=== PATIENT | male | born 1970 | race Caucasian/White ===

== ENCOUNTER → 2017-05-07 | Outpatient (CLI) | payer OTHER ==
[~2017-05-07] MED LIST: CATHETER FLUSH 10 ML SYR IV PRN; REGADENOSON 0.4 MG/5 ML SYR (LEXISCAN) IV ONE
[2017-05-07 12:55] VITALS: BP 145/87
--- NOTE | 2017-05-07 15:55 | Diagnostic Imaging Report ---
PROCEDURE: US Abdomen, limited. TECHNIQUE: Multiple realtime grayscale images were obtained over the abdomen in various projections. INDICATION: Left groin lump. FINDINGS: There is an oval well defined mass with no internal color-flow demonstrated seen in the left inguinal canal corresponding to the lump region. It measures 4.1 x 2.9 x 4.6 cm. The scrotum is evaluated and both testicles are seen. IMPRESSION: Indeterminate hypoechoic mass measuring 4.6 cm in the left inguinal region with well defined borders. Etiology is indeterminate. Further evaluation with the CT scan or MRI of the pelvis without and with intravenous contrast is recommended. Dictated by: Dictated on workstation # [id number]
--- NOTE | 2017-05-08 14:43 | STRESS TEST ---
DATE OF SERVICE: 05/07/2017 RESTING AND POST REGADENOSON TECHNETIUM-99M TETROFOSMIN SPECT CT IMAGING ORDERING PHYSICIAN: Dr. Hampton. PRIMARY PHYSICIAN: Dr. Hampton. CLINICAL DIAGNOSIS: Chest discomfort. Baseline images were carried out after injection of 10.39 mCi of technetium-99m tetrofosmin. This was followed by 0.4 mg regadenoson and 10.39 mCi of technetium-99m tetrofosmin for stress imaging. The electrocardiogram showed sinus rhythm. A ventricular couplet was noted during the study. There was no ventricular tachycardia. No other significant ventricular arrhythmia was seen. The electrocardiogram did not change significantly with the regadenoson infusion. Only subtle, nonspecific T-wave abnormality is seen. Review of images at rest and following stress does not indicate any significant perfusion defects consistent with myocardial ischemia or infarction. Gated images show normal global left ventricular systolic function with normal regional wall motion. Left ventricular ejection fraction is calculated to be 60%. Left ventricular end-diastolic volume is 90 mL. TID is absent (1.1). CONCLUSIONS: 1. No evidence of significant myocardial ischemia or infarction on this study. 2. Normal regional wall motion. 3. Normal global left ventricular systolic function with a calculated ejection fraction of 60%. Job ID: [id number] DocumentID: [id number] Dictated Date: 05/08/2017 12:47:35 Base Filler Operator Date: 05/08/2017 13:54:13 Dictated By: LENY PISANO MD, MA, FACP, FACC,
== END ==
LOC: RAD 10:01
PROVIDERS: ATTEND Family Medicine
DX: K40.90 Unilateral inguinal hernia, without obstruction or gangrene, not specified as recurrent (principal); R07.89 Other chest pain
CPT/HCPCS: 76705; 78452; 93017

== ENCOUNTER → 2017-06-05 | Outpatient (CLI) | payer OTHER ==
[~2017-06-05] MED LIST changes: +IOHEXOL 350 MG/ML 100 ML (OMNIPAQUE 350) VIAL IV ONE; +NS 100 ML (IVPB) BAG IV ONE; -REGADENOSON 0.4 MG/5 ML SYR (LEXISCAN) IV ONE
--- NOTE | 2017-06-05 15:10 | Diagnostic Imaging Report ---
PROCEDURE: CT abdomen and pelvis with and without contrast. TECHNIQUE: Precontrast acquisitions were acquired through the abdomen and pelvis. Multiple contiguous axial images were obtained through the abdomen and pelvis after the administration of intravenous contrast. INDICATION: Inguinal region mass. COMPARISON: 05/07/2017. FINDINGS: Included views of the lung bases are clear. CT abdomen: The liver, spleen, pancreas, adrenal glands, and kidneys have a normal appearance. Small bowel loops are nondistended. Normal appendix is identified. There is no loculated fluid collection, free fluid, nor free air within the abdomen. No abnormal mesenteric or retroperitoneal adenopathy is seen. Bony structures show no acute abnormalities. There is mild calcified and noncalcified aortic and arterial atherosclerosis. CT pelvis: Urinary bladder is grossly unremarkable. There is no loculated fluid collection, free fluid, nor free air within the pelvis. No abnormal lymph nodes are seen. Bony structures show no acute abnormalities. There is cutaneous-based lesion within the anterior margins of the left pelvis. It measures approximately 5 x 3.7 cm. There is no evidence of internal enhancement. Lesion is not associated with the left inguinal canal. IMPRESSION: 1. Cutaneous-based lesion anteriorly within the left pelvis, which corresponds to nonvascular lesion described on previously performed sonogram. Exact etiology remains indeterminate, but this is not associated with the left inguinal canal. This could be on the basis of a large complex sebaceous cyst. Surgical excision is recommended. Dictated by: Dictated on workstation # [id number]
== END ==
LOC: RAD 13:36
PROVIDERS: ATTEND Family Medicine
DX: R22.2 Localized swelling, mass and lump, trunk (principal)
CPT/HCPCS: 74178

== ENCOUNTER 2017-06-26 11:40 | Outpatient (CLI) | payer OTHER ==
[~2017-06-26] VITALS: Ht 170.2 cm; Wt 92.5 kg
[2017-06-26] MEDS ORDERED: OMEP20CA12 PO (16:26)
[2017-06-26] MEDS ORDERED: BUSP15TA60 PO (16:26)
[2017-06-26] MEDS ORDERED: LOVA20TA2 PO (16:26)
[2017-06-26] MEDS ORDERED: LISI10TA2 PO (16:26)
[2017-06-26] MEDS ORDERED: BUDE10.2 IH (16:26)
[2017-06-26] MEDS ORDERED: METO-272 PO (16:26)
[2017-06-27] MEDS ORDERED: DOCU-143 PO (10:21)
[2017-06-27] MEDS ORDERED: HYDR-3812 PO (10:21)
== END 2017-06-26 16:28 ==
LOC: PREOP 11:40
PROVIDERS: ATTEND Surgery
DX: Z01.818 Encounter for other preprocedural examination (principal); R19.04 Left lower quadrant abdominal swelling, mass and lump

== ENCOUNTER 2017-06-27 08:12 | Day surgery (SDC) | payer OTHER ==
[~2017-06-27] VITALS: Ht 170.2 cm; Wt 92.5 kg
[~2017-06-27 08:12] MED LIST changes: +BUDE10.2 IH; +BUSP15TA60 PO; -CATHETER FLUSH 10 ML SYR IV PRN; -IOHEXOL 350 MG/ML 100 ML (OMNIPAQUE 350) VIAL IV ONE; +LISI10TA2 PO; +LOVA20TA2 PO; +METO-272 PO; -NS 100 ML (IVPB) BAG IV ONE; +OMEP20CA12 PO
[2017-06-27] MEDS ORDERED: CATHETER FLUSH 10 ML SYR IV PRN (08:30)
[2017-06-27] MEDS ORDERED: CLINDAMYCIN 600 MG/NS 50 ML IVPB IV ONE ×2 (08:30)
[2017-06-27] MEDS: LACTATED RINGERS 1,000 ML IV PRN ×2 (08:39→09:50)
[2017-06-27 08:43] VITALS: BP 154/96
[2017-06-27] MEDS ORDERED: FAMOTIDINE 20MG/2ML IV (PEPCID) IV ONE (08:45)
[2017-06-27] MEDS ORDERED: BUPIVACAINE 0.5% 30 ML (SENSORCAINE) VIAL ONE (08:56)
[2017-06-27] MEDS ORDERED: LIDOCAINE 1% INJ 20 ML (XYLOCAINE) VIAL ONE (08:56)
--- NOTE | 2017-06-27 09:06 | Progress Note-Pre Operative ---
Pre-Operative Progress Note H&P Reviewed The H&P was reviewed, patient examined and no changes noted. Date Seen by Provider: Jun 27, 2017 Time Seen by Provider: 09:05 Date H&P Reviewed: Jun 27, 2017 Time H&P Reviewed: 09:05 Pre-Operative Diagnosis: left inguinal mass VINNIE TEE DO Jun 27, 2017 09:06
--- NOTE | 2017-06-27 10:00 | Progress Note-Post Operative ---
Post-Operative Progess Note Surgeon (s)/Staff Trainer (s) Surgeon VINNIE TEE DO Staff Trainer: Tirso Nwagwu Pre-Operative Diagnosis left inguinal mass Post-Operative Diagnosis left inguinal cyst Procedure & Operative Findings Date of Procedure 06/27/17 Procedure Performed/Findings excision of left inguinal cyst 5.2 cm diameter and excision of skin for closure Anesthesia Type general Estimated Blood Loss Estimated blood loss (mL): min Specimens/Packing Specimens Removed cyst VINNIE TEE DO Jun 27, 2017 10:00 am
[2017-06-27] MEDS ORDERED: DOCU-143 PO (10:21)
[2017-06-27] MEDS ORDERED: HYDR-3812 PO (10:21)
--- NOTE | 2017-06-27 10:24 | Discharge Inst-Simple/Standard ---
Discharge Inst-Standard Discharge Medications New, Converted or Re-Newed RX: RX on Chart Patient Instructions/Follow Up Plan of Care/Instructions/FU: Follow up with Dr. Bowie in 2 weeks No driving or operating heavy machinery when taking hydrocodone. Activity as Tolerated: No Discharge Diet: No Restrictions Other Inst to Patient Follow up Appt: Make appointment for 2 weeks. Instructions: No lifting greater than 10 pounds. No strenuous activity. May shower in 24 hours, no tub bath or soaking. Use incentive spirometer at home as directed. No Smoking Skin/Wound Care: May remove bandages. You need to leave the glue over incision on they will fall off on their own. Symptoms to Report: Appetite Changes, Extremity Discoloration, Numbness/Tingling, Swelling Increased , Bleeding Excessive, Eyesight Changes, Pain Increased, Urine Color Change, Constipation(Persistent), Fever over 101 degree F, Pain/Pressure in chest, Urinating Difficulty, Cough Up/Vomit Blood, Heart Beat Irreg/Pounding, Pain/ Pressure in jaw, Vaginal Bleeding Increase, Cramps in feet or legs, Lightheadedness, Pain/Pressure in shoulder, Diarrhea(Persistent), Memory Changes Suddenly, Questions/Concerns, Weight gain consecutive days, Dizziness/ Fainting, Nausea/Vomiting, Shortness of Breath, Weight gain over 2 pounds If questions or concerns contact your physician Or seek help at emergency department. ADRIANNA BOOKER APRN Jun 27, 2017 10:24
[2017-06-27] MEDS ORDERED: MEPERIDINE (DEMEROL) INJ 50 MG/ML IVP PRN (10:30)
[2017-06-27] MEDS ORDERED: morphine INJ 10 MG/ML 1ML (SYR OR VIAL) IVP PRN (10:30)
[2017-06-27] MEDS ORDERED: ONDANSETRON 4 MG/2 ML (SDV) Z0FRAN IVP PRN (10:30)
[2017-06-27 11:05] VITALS: BP 157/99
[2017-06-27 11:35] VITALS: BP 154/98
[2017-06-27 11:45] VITALS: BP 154/98
--- NOTE | 2017-06-27 12:09 | OPERATIVE REPORT ---
PROCEDURE PHYSICIAN: VINNIE TEE DATE OF PROCEDURE: 06/27/2017 PREOPERATIVE DIAGNOSIS: Left inguinal mass. POSTOPERATIVE DIAGNOSIS: Left inguinal cyst. POSTOPERATIVE DIAGNOSIS: Excision of left inguinal cyst 5.2 cm diameter and excision of skin for closure. ANESTHESIA: General. ESTIMATED BLOOD LOSS: Minimal. COMPLICATIONS: None. SURGEON: Jamir. SMALL PIECE CUTTER: Daniel Stone to assist in retraction, dissection, and closure. INDICATIONS: The patient is a 46-year-old male with a mass in the left lower quadrant who had previous work-up of ultrasound and CT scan giving indeterminate mass of the left inguinal region. He was sent for surgical evaluation and possible resection. He was explained the risks and benefits of the procedure and wished to proceed with the procedure. Consent signed on the chart. PROCEDURE: The patient was taken to the operative suite. He was prepped and draped in sterile fashion. A surgical pause was performed. Local anesthetic was infiltrated into the area. A number 15 blade scalpel was used to make an incision over the palpable mass and encountered a cystic type structure. Metzenbaums and blunt dissection were used to dissect around the cyst. A small opening on the anterior aspect was made and clear fluid along with a sebaceous-type material did erupt from it. This was then grasped, elevated and dissected completely around, removing the cyst in its entirety. Hemostasis was achieved. The wound was then irrigated with copious amounts of irrigation. The skin over this cyst was very thin and vascular supply to the skin was questionable; therefore, the skin over the cyst area was excised with cautery dissection. Once this skin was removed, the subcutaneous tissues were then reapproximated using 3-0 Vicryl. The skin was then closed using 4-0 Vicryl in running subcuticular fashion. The area then washed and dried. Dermabond was placed over the incision. A total of 10 mL of 0.5% Marcaine and 1% lidocaine at 50:50 ratio was used to anesthetize the area prior to the closure. Job ID: [id number] Dictated Date: 06/27/2017 10:04:17 Manager [employer] Date: 06/27/2017 12:02:05 / jaclyn
== END 2017-06-27 11:45 | disposition home or self-care (01) ==
LOC: SDC 08:12
PROVIDERS: ATTEND Surgery
DX: L72.0 Epidermal cyst (principal); I10 Essential (primary) hypertension; F17.210 Nicotine dependence, cigarettes, uncomplicated; E66.9 Obesity, unspecified; Z68.32 Body mass index [BMI] 32.0-32.9, adult
CPT/HCPCS: 87081